=== PATIENT | female | born 1980 | race Caucasian/White ===

== ENCOUNTER 2016-08-08 15:55 | Emergency (ER) | payer OTHER ==
[~2016-08-08] VITALS: Ht 157.5 cm; Wt 99.8 kg
[~2016-08-08 15:55] MED LIST: PROZAC
[2016-08-08] MEDS: BENZONATATE 100 MG CAPSULE PO ONE (16:45)
[2016-08-08] MEDS ORDERED: BENZONATATE 100 MG CAPSULE ONE (16:52)
[2016-08-08] MEDS: ALBUTEROL SULFATE 2.5 MG/3 ML NEBU NEB ONE ×2 (16:53→17:40)
--- NOTE | 2016-08-08 16:57 | NUR ---
BREATHING TREATMENT DONE BY RT.
[2016-08-08] MEDS ORDERED: ALBUTEROL SULFATE 2.5 MG/3 ML NEBU ONE ×2 (17:02→17:50)
--- NOTE | 2016-08-08 17:35 | NUR ---
AT THIS TIME. AMBULATORY TO BATHROOM WITHOUT DIFFICULTYPT FEELING BETTER
[2016-08-08] MEDS: predniSONE 20 MG TABLET PO ONE (18:21)
[2016-08-08] MEDS ORDERED: predniSONE 20 MG TABLET ONE (18:26)
--- NOTE | 2016-08-08 19:10 | NUR ---
care endorsed by day shift nurse, pt resting in bed with at side, no resp distress noted or reported upon assessment...
--- NOTE | 2016-08-08 19:41 | NUR ---
Patient discharged to home in stable conditon. Written and verbal after care instructions given. Patient verbalizes understanding of instructions. Pt walked out of ER unassisted with and belongings at side.
[2016-08-08 19:43] VITALS: BP 134/97
== END 2016-08-08 19:44 | disposition home or self-care (01) ==
LOC: ER 15:55
DX: J40 Bronchitis, not specified as acute or chronic (principal); F17.200 Nicotine dependence, unspecified, uncomplicated; Z88.0 Allergy status to penicillin
CPT/HCPCS: 94644; 94664; 99285; A4663; J7512

== ENCOUNTER 2017-05-09 17:15 | Emergency (ER) | payer OTHER ==
[~2017-05-09] VITALS: Ht 165.1 cm; Wt 104.3 kg
[2017-05-09 17:54] LABS: *BLOOD, URINE 2+ (NEGATIVE); *CLARITY,URINE CLEAR (CLEAR); *COLOR,URINE YELLOW (YELLOW); *KETONES,URINE 1+ (NEGATIVE); *PROTEIN,URINE NEGATIVE (NEGATIVE); *UROBILINOGEN,URINE 0.2 E.U./dl (NORMAL); LEUKOCYTE ESTERASE ,URINE NEGATIVE (NEGATIVE); NITRITE, URINE NEGATIVE (NEGATIVE); UGLUCOSE NEGATIVE (NEGATIVE)
[2017-05-09 17:55] LABS: *BILIRUBIN,URIN 1+ (NEGATIVE)
[2017-05-09 17:56] LABS: *URINE HCG, QUAL NEGATIVE (NEGATIVE)
[2017-05-09 17:59] LABS: BACTERIA,URINE FEW /HPF (NONE SEEN); MUCUS,URINE MANY /LPF (0-FEW); SQUAMOUS EPITHELIAL CELL,UR MODERATE /HPF (NONE SEEN)
--- NOTE | 2017-05-09 19:16 | NUR ---
still for disposition, endorsed to 7pm nurse Jamarcus brown
[2017-05-09 19:18] LABS: BASOPHILS # (AUTO) 0.1 K/uL (0.0-8.0); BASOPHILS % (AUTO) 0.5 % (0.0-2.0); EOSINOPHILS # (AUTO) 0.4 K/uL (0.0-0.7); EOSINOPHILS % (AUTO) 3.6 % (0.0-7.0); HEMATOCRIT 42.1 % (31.2-41.9); HEMOGLOBIN 14.4 g/dL (10.9-14.3); LYMPHOCYTES # (AUTO) 2.9 K/uL (20.0-40.0); LYMPHOCYTES % (AUTO) 26.9 % (20.5-51.5); MEAN CORPUSCULAR HEMOGLOBIN 29.9 uug (24.7-32.8); MEAN CORPUSCULAR HGB CONC 34 g/dL (32.3-35.6); MEAN CORPUSCULAR VOLUME 87.5 fL (75.5-95.3); MONOCYTES # (AUTO) 0.4 K/uL (2.0-10.0); MONOCYTES % (AUTO) 3.8 % (0.0-11.0); NEUTROPHILS % (AUTO) 65.2 % (38.5-71.5); PLATELET COUNT (AUTO) 352 K/uL (179-408); RED BLOOD CELL COUNT(AUTO) 4.81 MIL/uL (3.63-4.92); WHITE BLOOD COUNT (AUTO) 10.7 K/uL (3.8-11.8)
[2017-05-09 19:20] LABS: CREATININE 0.8 mg/dL (0.6-1.3); POTASSIUM 4.1 mmol/L (3.5-5.1)
--- NOTE | 2017-05-09 19:25 | NUR ---
PER DR MAGDALENO SPOKE WITH DR Gonsales, [facility].
[2017-05-09 19:26] LABS: BILIRUBIN,TOTAL 0.2 mg/dL (0.2-1.0); TOTAL PROTEIN, SERUM 7.8 g/dL (6.4-8.2)
[2017-05-09 20:11] VITALS: BP 132/56
--- NOTE | 2017-05-09 20:12 | NUR ---
PT IN NO DISTRESS, PT DAVISED TO F/U WITH PMD OR RETURN TO ER FOR WORSENING OF SYMPTOMS,VERBALIZES UNDERSTANDING, RX GIVEN TO PT
== END 2017-05-09 21:53 | disposition home or self-care (01) ==
LOC: ER 17:16
DX: R10.9 Unspecified abdominal pain (principal); F17.200 Nicotine dependence, unspecified, uncomplicated; Z88.0 Allergy status to penicillin
CPT/HCPCS: 36415; 76770; 84703; 85025; 87086; A4663

== ENCOUNTER 2017-07-18 16:13 | Emergency (ER) | payer OTHER ==
[~2017-07-18] VITALS: Ht 157.5 cm; Wt 99.8 kg
[2017-07-18] MEDS ORDERED: OXCARBAZEPINE 300 MG TABLET (16:47)
[2017-07-18] MEDS ORDERED: VENTOLIN HFA 90 MCG INHALER (16:47)
--- NOTE | 2017-07-18 18:26 | NUR ---
Patient discharged to home in stable conditon. Written and verbal after care instructions given. Patient verbalizes understanding of instructions.
== END 2017-07-18 18:28 | disposition home or self-care (01) ==
LOC: ER 16:14
DX: Z30.431 Encounter for routine checking of intrauterine contraceptive device (principal); F17.210 Nicotine dependence, cigarettes, uncomplicated; Z90.89 Acquired absence of other organs; Z88.0 Allergy status to penicillin; Z79.899 Other long term (current) drug therapy
CPT/HCPCS: 99283; A4663

== ENCOUNTER 2019-08-11 16:08 | Emergency (ER) | payer OTHER ==
[~2019-08-11] VITALS: Ht 157.5 cm; Wt 90.7 kg
[2019-08-11 17:54] LABS: BASOPHILS % (AUTO) 0.3 % (0.0-2.0); EOSINOPHILS # (AUTO) 0.4 K/uL (0.0-0.7); EOSINOPHILS % (AUTO) 2.9 % (0.0-7.0); HEMATOCRIT 39.5 % (31.2-41.9); HEMOGLOBIN 13.3 g/dL (10.9-14.3); LYMPHOCYTES # (AUTO) 1.8 K/uL (20.0-40.0); LYMPHOCYTES % (AUTO) 12.7 % (20.5-51.5); MEAN CORPUSCULAR HEMOGLOBIN 30.3 uug (24.7-32.8); MEAN CORPUSCULAR HGB CONC 34 g/dL (32.3-35.6); MEAN CORPUSCULAR VOLUME 90.3 fL (75.5-95.3); MONOCYTES # (AUTO) 0.4 K/uL (2.0-10.0); MONOCYTES % (AUTO) 3.2 % (0.0-11.0); NEUTROPHILS # (AUTO) 11.4 K/uL (1.8-8.9); NEUTROPHILS % (AUTO) 80.9 % (38.5-71.5); PLATELET COUNT (AUTO) 330 K/uL (179-408); RED BLOOD CELL COUNT(AUTO) 4.38 MIL/uL (3.63-4.92)
[2019-08-11 18:08] LABS: ETHANOL 135 MG/DL (0-0)
[2019-08-11 18:19] LABS: ALANINE AMINOTRANSFERASE 19 U/L (14-59); ALKALINE PHOSPHATASE 111 U/L (50-136); ASPARTATE AMINOTRANSFERASE 18 U/L (15-37); BILIRUBIN,DIRECT 0.1 mg/dL (0.0-0.2); BILIRUBIN,TOTAL 0.2 mg/dL (0.2-1.0); CARBON DIOXIDE 26 mmol/L (21-32); CHLORIDE 99 mmol/L (98-107); CREATININE 0.7 mg/dL (0.6-1.3); GLUCOSE 91 mg/dL (74-106); POTASSIUM 3.2 mmol/L (3.5-5.1); TOTAL PROTEIN, SERUM 7.7 g/dL (6.4-8.2); UREA NITROGEN, BLOOD 9 mg/dL (7-18)
[2019-08-11 18:20] LABS: ACETAMINOPHEN < 10.0 ug/mL (10-30)
[2019-08-11 18:41] LABS: THYROID STIMULATING HORMONE 1.006 mIU/mL (0.358-3.740)
[2019-08-11] MEDS ORDERED: CEphaleXIN 500 MG CAPSULE PO ONE (18:45)
[2019-08-11] MEDS ORDERED: predniSONE 20 MG TABLET PO ONE (18:45)
--- NOTE | 2019-08-11 18:52 | NUR ---
Patient is AOx4. Patient discharged to home in stable condition and steady gait. Written and verbal after care instructions given to patient. Patient verbalized understanding and compliance of instructions. Patient said that she will buy & take her prescribed medicines at home, refusing po prednisone & [email or web address] time.
[2019-08-11 19:00] LABS: *BILIRUBIN,URIN 1+ (NEGATIVE); *BLOOD, URINE 3+ (NEGATIVE); *CLARITY,URINE CLEAR (CLEAR); *COLOR,URINE YELLOW (YELLOW); *KETONES,URINE NEGATIVE (NEGATIVE); *UROBILINOGEN,URINE 0.2 E.U./dl (NORMAL); LEUKOCYTE ESTERASE ,URINE NEGATIVE (NEGATIVE); NITRITE, URINE NEGATIVE (NEGATIVE); UGLUCOSE NEGATIVE (NEGATIVE)
[2019-08-11 19:03] LABS: *URINE HCG, QUAL NEGATIVE (NEGATIVE)
[2019-08-11 19:04] LABS: BACTERIA,URINE 1+ /HPF (NONE SEEN); MUCUS,URINE MANY /LPF (0-FEW); SQUAMOUS EPITHELIAL CELL,UR FEW /HPF (NONE SEEN); WBC,URINE NONE SEEN /HPF (0-3)
[2019-08-11 19:19] LABS: *AMPHETAMINE, URINE NEGATIVE (NEGATIVE); *BARBITURATE, URINE NEGATIVE (NEGATIVE); *CANNABINOID, URINE NEGATIVE (NEGATIVE); *COCCAINE, URINE NEGATIVE (NEGATIVE); *OPIATE, URINE NEGATIVE (NEGATIVE); *PHENCYCLIDINE SCREEN,URINE NEGATIVE (NEGATIVE)
== END 2019-08-11 18:56 | disposition home or self-care (01) ==
LOC: ER 16:14
DX: J18.9 Pneumonia, unspecified organism (principal); J45.909 Unspecified asthma, uncomplicated; F17.200 Nicotine dependence, unspecified, uncomplicated; Z88.0 Allergy status to penicillin; Z79.899 Other long term (current) drug therapy
CPT/HCPCS: 36415; 70450; 71045; 80048; 80076; 80307; 81000; 81001; 82140; 83605; 84443; 84484; 84703; 85025; 85730; 87040 ×2; 87086; 87400; 93005; 99285; G0480 ×2; G0481; 70030-TC; A4663

== ENCOUNTER 2019-08-15 14:14 | Emergency (ER) | payer OTHER ==
[~2019-08-15] VITALS: Ht 157.5 cm; Wt 79.4 kg
--- NOTE | 2019-08-15 14:36 | NUR ---
ERMD AT BEDSIDE FOR HX AND PHYSICAL
--- NOTE | 2019-08-15 14:39 | NUR ---
Jaja breaux in [facility] - 08/15/19 at [address] APPLE MATTSON ([facility]) CALL BACK
[2019-08-15] MEDS ORDERED: diphenhydrAMINE 50 MG CAPSULE ONE (14:50)
--- NOTE | 2019-08-15 14:57 | NUR ---
PT ABLE TO TOLERATE PO MEDS ORDERED
[2019-08-15] MEDS ORDERED: diphenhydrAMINE 50 MG CAPSULE PO ONE (15:00)
[2019-08-15] MEDS ORDERED: methylPREDNISolone SOD SUCC 125 MG/2 ML VIAL IM ONE (15:00)
[2019-08-15] MEDS ORDERED: methylPREDNISolone SOD SUCC 125 MG/2 ML VIAL ONE (15:02)
--- NOTE | 2019-08-15 15:10 | NUR ---
Patient discharged to home in stable conditon. Written and verbal after care instructions given. Patient verbalizes understanding of instructions. AMBULATORY W/ STABLE GAIT ALL BELONGINGS W/ PT
[2019-08-15 15:13] VITALS: BP 132/89
== END 2019-08-15 15:14 | disposition home or self-care (01) ==
LOC: ER 14:14
DX: T78.40XA Allergy, unspecified, initial encounter (principal); X58.XXXA Exposure to other specified factors, initial encounter; R21 Rash and other nonspecific skin eruption; J20.9 Acute bronchitis, unspecified; Z88.0 Allergy status to penicillin; F17.200 Nicotine dependence, unspecified, uncomplicated
CPT/HCPCS: 96372; 99283; J2930; Q0163; A4663

== ENCOUNTER 2019-08-28 18:43 | Emergency (ER) | payer OTHER ==
[~2019-08-28] VITALS: Ht 157.5 cm; Wt 79.4 kg
[~2019-08-28 18:43] MED LIST changes: +OXCA300T4 PO; +OXCARBAZEPINE 300 MG TABLET; +VENTOLIN HFA 90 MCG INHALER
--- NOTE | 2019-08-28 19:00 | NUR ---
PT IS IN ROOM #2A. DR MAGDALENO EVALUATED THE PT.
[2019-08-28] MEDS ORDERED: KETOROLAC TROMETHAMINE 30 MG INJ ONE (19:07)
[2019-08-28] MEDS ORDERED: KETOROLAC TROMETHAMINE 30 MG INJ IM ONE (19:15)
--- NOTE | 2019-08-28 20:03 | NUR ---
Patient discharged to home in stable conditon. Written and verbal after care instructions given. Patient verbalizes understanding of instructions. Patient ambulating with steady gait. NAD noted
[2019-08-28 20:06] VITALS: BP 116/72
== END 2019-08-28 20:03 | disposition home or self-care (01) ==
LOC: ER 18:43
DX: M54.2 Cervicalgia (principal); M25.78 Osteophyte, vertebrae; Z87.01 Personal history of pneumonia (recurrent); J45.909 Unspecified asthma, uncomplicated; G40.909 Epilepsy, unspecified, not intractable, without status epilepticus; Z79.899 Other long term (current) drug therapy
CPT/HCPCS: 99284; 70360; 71045; 96372; J1885; A4663